=== PATIENT | male | born 1975 | race African-American/Black ===

== ENCOUNTER 2017-04-01 16:18 | Emergency (ER) | payer BC ==
--- NOTE | 2017-04-01 16:31 | EDM.PDOC ---
ED HISTORY OF PRESENT ILLNESS - General Chief Complaint: Respiratory Problem Stated Complaint: COUGH-SENT FROM [facility] Time Seen by Provider: 04/01/17 16:26 - History of Present Illness INITIAL COMMENTS - FREE TEXT/NARRATIVE: 41-year-old male presents emergency room after being sent here from urgent care with a cough. urgent care was concerned about the possibility of active TB. The patient gives a history of coughing for one week intermittent fevers occasional night sweats apparently he's lost 4 pounds over the last year but he is trying to lose some weight. He coughs up mostly clear sputum but he has noted some blood tinging more recently this is very light. Patient is an immigrant from the [facility]. He has received BCG. And his skin test is positive in the past. - Related Data Allergies/ADRs: Allergies Allergy/AdvReac Type Severity Reaction Status Date / Time No Known Allergies Allergy Verified 04/01/17 16:33 Home Meds: Home Meds Albuterol [Proventil HFA] 6.7 gm INH Q4H #1 inhaler 04/01/17 [Rx] Doxycycline Hyclate 100 mg PO Q12H #14 capsule 04/01/17 [Rx] ED ROS GENERAL - Review of Systems Review Of Systems: See Below Constitutional: Reports: fever, malaise HEENT: Reports: No symptoms Respiratory: Reports: Cough, Sputum. Denies: Shortness of Breath, Wheezing, Pleuritic Chest Pain Cardiovascular: Reports: No symptoms Endocrine: Reports: no symptoms GI/Abdominal: Reports: No symptoms : Reports: no symptoms Musculoskeletal: Reports: no symptoms Skin: Reports: no symptoms Neurological: Reports: No Symptoms ED EXAM, GENERAL - Physical Exam Exam: See Below Exam Limited By: No limitations General Appearance: alert, no apparent distress Eye Exam: bilateral eye: EOMI, normal inspection, periorbital changes Ears: normal external exam, normal canal, hearing grossly normal, normal TMs Nose: normal inspection, normal mucosa, no blood Throat/Mouth: Normal inspection, Normal lips, Normal teeth, Normal gums, Normal oropharynx, Normal voice, No airway compromise Head: atraumatic, normocephalic Neck: normal inspection, supple, non-tender, full range of motion. No: lymphadenopathy (L), lymphadenopathy (R) Respiratory/Chest: no respiratory distress, lungs clear, normal breath sounds Cardiovascular: regular rate, rhythm, no edema, no murmur GI/Abdominal: normal bowel sounds, soft, non tender Back Exam: normal inspection. No: CVA tenderness (L), CVA tenderness (R) Extremities: normal inspection, no pedal edema Course - Vital Signs Last Recorded V/S: Last Vital Signs Temp 36.5 C 04/01/17 16:27 Pulse 106 H 04/01/17 16:27 Resp 18 04/01/17 16:27 BP 132/95 H 04/01/17 16:27 Pulse Ox 97 04/01/17 16:27 - Orders/Labs/Meds Orders: Active Orders 24 hr Category Date Time Status Chest 2V [CR] Stat Exams 04/01/17 17:12 Taken - Re-Assessments/Exams Free Text/Narrative Re-Assessment/Exam: 04/01/17 18:49 given his history I think it's highly unlikely he has active tuberculosis. This probably represents a viral potentially bacterial bronchitis to be treated with albuterol MDI and doxycycline twice daily for a week however we will recommend a repeat chest x-ray in 3 weeks to confirm no interval changes from today's chest x-ray. The patient voices understanding of this and will followup as directed. Departure - Departure Time of Disposition: 18:33 Disposition: Home, Self-Care 01 Clinical Impression: Bronchitis Prescriptions: Albuterol [Proventil HFA] 6.7 gm INH Q4H #1 inhaler Doxycycline Hyclate 100 mg PO Q12H #14 capsule Instructions: Acute Bronchitis, [id number] Referrals: Sean Calix Jr, MD [Primary Care Provider] - Forms: ED Department Discharge Additional Instructions: return to the emergency room with any questions or problems. He been started on albuterol inhaler uses 2 puffs every 4 hours while awake continue this for one week after symptoms resolve. He been started on doxycycline this is an antibiotic take one pill twice daily for one week. Avoid excessive sun exposure while taking this medication. Followup with Dr. Calix in 3 weeks have a repeat chest x-ray to ensure no changes from today's. - My Orders Last 24 Hours: My Active Orders 04/01/17 17:12 Chest 2V [CR] Stat - Assessment/Plan Last 24 Hours: My Active Orders 04/01/17 17:12 Chest 2V [CR] Stat
[2017-04-01 16:33] VITALS: BP 132/95
--- NOTE | 2017-04-01 18:44 | CR ---
Chest: 2 views of the chest were obtained. Comparison: No previous chest x-ray. Heart size and mediastinum are normal. Nodular density is noted within the left upper chest. Lungs otherwise are clear. Bony structures are unremarkable. Impression: 1. Nodular density within the left upper chest. Uncertain if this is due to scarring or represents actual nodule. Noncontrast chest CT recommended to further evaluate. 2. Other portions of the 2 view chest x-ray appear within normal limits. Diagnostic code #9
== END 2017-04-01 18:47 | disposition home or self-care (01) ==
LOC: JD.ED 16:18
DX: J40 Bronchitis, not specified as acute or chronic (principal)
CPT/HCPCS: 71020; 71020-26; 99283; 99284

== ENCOUNTER 2020-10-11 23:49 | Emergency (ER) | payer BC, OTHER ==
[2020-10-12 00:25] VITALS: BP 129/96; PULSE 80
--- NOTE | 2020-10-12 00:54 | EDM.PDOC ---
ED HPI GENERAL MEDICAL PROBLEM - General Chief Complaint: Lower Extremity Injury/Pain Stated Complaint: INJURED BOTTOM OF LEFT FOOT Time Seen by Provider: 10/12/20 00:50 - History of Present Illness INITIAL COMMENTS - FREE TEXT/NARRATIVE: 44-year-old male presents the emergency room with a sensation of having some stuck in the bottom of his left foot. This is been going on for a couple of days. This started after the patient was wearing thick shoes with a thick sock. He had no evidence of bleeding in the sock there is no foreign body found in the shoe. There was no perforation of the bottom of the shoe. The patient was so convinced there was something in there yesterday he picked up what sounds like some forceps at [facility] and started digging around in the area. He thinks there is something in there but he cannot get a hold of it. He is uncertain of his last tetanus shot - Related Data Allergies Allergy/AdvReac Type Severity Reaction Status Date / Time No Known Allergies Allergy Verified 10/12/20 00:25 Home Meds: Home Meds . [No Known Home Meds] 10/12/20 [History] Past Medical History - Past Health History Medical/Surgical History: Denies Medical/Surgical History - Infectious Disease History Infectious Disease History: Reports: Other (See Below) Other Infectious Disease History: has tested negative for TB Social & Family History - Family History Family Medical History: No Pertinent Family History - Tobacco Use Tobacco Use Status *Q: Never Tobacco User - Caffeine Use Caffeine Use: Reports: Coffee - Living Situation & Occupation Living situation: Reports: Occupation: Employed Review of Systems - Review of Systems Review Of Systems: See Below Constitutional: Reports: No Symptoms Respiratory: Reports: No Symptoms Cardiovascular: Reports: No Symptoms GI/Abdominal: Reports: No Symptoms ED EXAM, GENERAL - Physical Exam Exam: See Below Exam Limited By: No Limitations General Appearance: Alert, No Apparent Distress Respiratory/Chest: No Respiratory Distress, Lungs Clear, Normal Breath Sounds Cardiovascular: Regular Rate, Rhythm, No Edema, No Murmur Skin Exam: Other (Emanation of the foot shows an area where he has been digging at it that had some bleeding at some point but not actively bleeding at this time he feels there is a foreign body in there I have looked at it with overhead light and magnification and cannot see anything. He is got some fragments of thick skin that he believes is a foreign body I have assured him it is not. He has created quite a defect in the thick skin it is almost to the subcutaneous tissue in the middle) Course - Vital Signs Last Recorded V/S: Last Vital Signs Temp 36.1 C 10/12/20 00:22 Pulse 80 10/12/20 00:22 Resp 16 10/12/20 00:22 BP 129/96 H 10/12/20 00:22 Pulse Ox 100 10/12/20 00:22 - Orders/Labs/Meds Orders: Active Orders 24 hr Category Date Time Status Foot 2V Lt [CR] Stat Exams 10/12/20 00:53 Taken - Re-Assessments/Exams Free Text/Narrative Re-Assessment/Exam: 10/12/20 01:43 X-ray examination of the foot does not reveal any obvious foreign body. I discussed situation with the patient and I absolutely do not want him digging at this area if he creates scar tissue and there he could have a lifelong sensation of a rocklike sensation in there if he has a foreign body in there it is very small and will probably granulate in without too much difficulty. But I really cautioned him against doing bathroom surgery. The risk of permanent scar tissue is too high. He voices understanding with this. We will discharge him home I recommend Epson salt soaks for the next 4 to 5 days. Departure - Departure Time of Disposition: 01:44 Disposition: Home, Self-Care 01 Clinical Impression: Sensation of foreign body in foot - Discharge Information Referrals: Sean Calix Jr, MD [Primary Care Provider] - Forms: ED Department Discharge Additional Instructions: Return to the emergency room with any questions problems or worsening symptoms. Follow-up with Dr. Calix early next week. Soak your foot in warm Epson salt solution for 20 minutes 4 times a day for the next 5 days. Do not attempt to remove anything from the bottom of your foot. This will create scar tissue that can cause permanent rock like sensation in your foot Sepsis Event Note (ED) - Evaluation Sepsis Screening Result: No Definite Risk - Focused Exam Vital Signs: Vital Signs Temp Pulse Resp BP Pulse Ox 10/12/20 00:22 36.1 C 80 16 129/96 H 100 - My Orders Last 24 Hours: My Active Orders 10/12/20 00:53 Foot 2V Lt [CR] Stat - Assessment/Plan Last 24 Hours: My Active Orders 10/12/20 00:53 Foot 2V Lt [CR] Stat
[2020-10-12] MEDS ORDERED: Diphtheria,Pertussis(Acell),Tetanus Vaccine 0.5 ML Syringe IM ONE (01:39)
--- NOTE | 2020-10-12 08:45 | CR ---
PROCEDURE INFORMATION: Exam: XR Left Foot Exam date and time: 10/12/2020 12:46 AM Age: 44 years old Clinical indication: Screening exam; Possible foreign body TECHNIQUE: Imaging protocol: XR Left foot. Views: 1 or 2 views. COMPARISON: No relevant prior studies available. FINDINGS: Bones/joints: The carlos elements are normal in density and alignment without fracture or focal osseous abnormality. Joint spaces are preserved. Corticated calcaneal spur formation at the insertion of the plantar fascia Soft tissues: The visualized soft tissues are unremarkable. No radiodense foreign body is evident. IMPRESSION: No acute findings Thank you for allowing us to participate in the care of your patient. Dictated and Authenticated by: Shruti Jensen MD 10/12/2020 2:24 AM Central Time ([place] & [place]) [facility]
== END 2020-10-12 02:01 | disposition home or self-care (01) ==
LOC: JD.ED 23:49
DX: Z03.89 Encounter for observation for other suspected diseases and conditions ruled out (principal); Z23 Encounter for immunization
CPT/HCPCS: 73620-26-LT; 73620-LT; 90471; 90715; 99282; 99283

== ENCOUNTER 2022-09-23 21:32 | Emergency (ER) | payer BC ==
[2022-09-23 21:54] VITALS: BP 129/90; PULSE 120
== END 2022-09-24 00:13 | disposition home or self-care (01) ==
LOC: JD.ED 21:32
DX: C92.40 Acute promyelocytic leukemia, not having achieved remission (principal); D69.6 Thrombocytopenia, unspecified; D72.829 Elevated white blood cell count, unspecified; R74.8 Abnormal levels of other serum enzymes; E80.6 Other disorders of bilirubin metabolism; R91.8 Other nonspecific abnormal finding of lung field
CPT/HCPCS: 36415; 74176; 74176-26; 80053; 81001; 83690; 85007; 85027; 99284